=== PATIENT | male | born 1945 | race Caucasian/White ===

== ENCOUNTER → 2016-12-21 | Outpatient (CLI) | payer OTHER ==
[2016-12-21 10:32] LABS: BASO # 0.1 10*3/uL (0.0-0.1); BASO % 0.7 % (0.0-1.0); EOS # 0.2 10*3/uL (0.0-0.4); EOS % 2.1 % (1.0-4.0); HEMATOCRIT 42.5 % (42.0-52.0); HEMOGLOBIN 14.5 g/dl (14.0-18.0); LYMPH # 2.1 10*3/uL (1.3-4.4); LYMPH % 27.5 % (27.0-41.0); MEAN CELL VOLUME 89.9 fl (80.0-94.0); MEAN CORPUSCULAR HGB 30.7 pg (27.0-31.0); MEAN CORPUSCULAR HGB CONC 34.1 g/dl (33.0-37.0); MEAN PLATELET VOLUME 12.2 fl (9.6-12.3); MONO # 0.6 10*3/uL (0.1-1.0); MONO % 7.2 % (3.0-9.0); NEUT # 4.7 10*3/uL (2.3-7.9); NEUT % 62.1 % (47.0-73.0); PLATELET COUNT AUTOMATED 147 10*3/uL (130-400); RED BLOOD COUNT 4.73 10*6/uL (4.50-5.90); RED CELL DISTRI WIDTH 13.7 % (0-14.5); WHITE BLOOD COUNT 7.6 10*3/uL (4.8-10.8)
[2016-12-21 11:02] LABS: ALBUMIN 3.7 gm/dl (3.1-4.5); BUN 15 mg/dl (7-24); CARBON DIOXIDE 32 mmol/L (21-32); CHLORIDE 98 mmol/L (98-107); CHOLESTEROL 139 mg/dL (<200); EST GLOM FILT AFRICAN AMERICAN > 60 ml/min; GLUCOSE 90 mg/dL (65-99); POTASSIUM 3.6 mmol/L (3.5-5.1); SGOT/AST 18 IU/L (3-35); SGPT/ALT 23 U/L (12-78); SODIUM 141 mmol/L (136-145); TRIGLYCERIDES 240 mg/dl (<150); VLDL CHOLESTEROL 48 mg/dL (6-40)
[2016-12-21 11:09] LABS: ALKALINE PHOSPHATASE 68 U/L (45-117); BILIRUBIN, TOTAL 0.6 mg/dl (0.2-1.0); FREE T4 1.29 ng/dl (0.76-1.46); HDL CHOLESTEROL 40 mg/dl (40-60); LDL CHOLESTEROL 51 mg/dL (9-159)
[2016-12-22 09:08] LABS: PROSTATE SPECIFIC AG FREE 0.06 ng/mL
== END | disposition home or self-care (01) ==
LOC: LAB 09:46
PROVIDERS: Internal Medicine
DX: N40.0 Benign prostatic hyperplasia without lower urinary tract symptoms (principal); E55.9 Vitamin D deficiency, unspecified; E03.9 Hypothyroidism, unspecified; E78.00 Pure hypercholesterolemia, unspecified

== ENCOUNTER 2017-06-24 12:00 | Inpatient (IN) | payer OTHER ==
[~2017-06-24] VITALS: Ht 180.3 cm; Wt 118.2 kg
[2017-06-24 12:14] VITALS: BP 107/77
[2017-06-24 12:19] LABS: BASO # 0.1 10*3/uL (0.0-0.1); BASO % 0.6 % (0.0-1.0); EOS # 0.1 10*3/uL (0.0-0.4); EOS % 1.2 % (1.0-4.0); HEMATOCRIT 40.6 % (42.0-52.0); HEMOGLOBIN 14.4 g/dl (14.0-18.0); LYMPH # 1.8 10*3/uL (1.3-4.4); LYMPH % 16.5 % (27.0-41.0); MEAN CELL VOLUME 90.4 fl (80.0-94.0); MEAN CORPUSCULAR HGB 32.1 pg (27.0-31.0); MEAN CORPUSCULAR HGB CONC 35.5 g/dl (33.0-37.0); MEAN PLATELET VOLUME 10.8 fl (9.6-12.3); MONO # 1.1 10*3/uL (0.1-1.0); NEUT # 7.7 10*3/uL (2.3-7.9); NEUT % 71.2 % (47.0-73.0); PLATELET COUNT AUTOMATED 185 10*3/uL (130-400); RED BLOOD COUNT 4.49 10*6/uL (4.50-5.90); RED CELL DISTRI WIDTH 13.4 % (0-14.5); WHITE BLOOD COUNT 10.8 10*3/uL (4.8-10.8)
[2017-06-24 12:33] LABS: ACT PARTIAL THROMBO TIME 32.4 SECONDS (20.8-31.5); INTERNATIONAL NORM RATIO 2.6 (2.0-3.5)
[2017-06-24 12:35] LABS: ALBUMIN 3.5 gm/dl (3.1-4.5); ALKALINE PHOSPHATASE 82 U/L (45-117); BUN 21 mg/dl (7-24); CHLORIDE 88 mmol/L (98-107); CKMB 2.5 ng/ml (0.5-3.6); CPK 127 U/L (39-308); CREATININE 1.22 mg/dL (0.70-1.30); LIPASE 108 U/L (73-393); MAGNESIUM 1.9 mg/dL (1.5-2.1); POTASSIUM 2.8 mmol/L (3.5-5.1); SGOT/AST 19 IU/L (3-35); SGPT/ALT 20 U/L (12-78); SODIUM 131 mmol/L (136-145); TROPONIN I < 0.015 ng/ml (<0.045)
--- NOTE | 2017-06-24 14:57 | NUR ---
NURSE REPORT PROVIDED TO [facility]. ADMISSION PENDING ON ARRIVAL OF NEW STAFF AT APROXIMATELY 1520, THEY WILL PAULETTE ME WHEN PT IS TO BE BROGUTH UPSTAIRS. NO CHANGE IN PT CONDITION.
[2017-06-24 15:00] VITALS: BP 116/66
[2017-06-24] MEDS ORDERED: SIMVASTATIN40 MG PO (15:12)
--- NOTE | 2017-06-24 15:41 | NUR ---
PERMISSION TO TRANSPORT NOW PROVIDED. ADMISSION IN PROGRESS.
[2017-06-24 15:50] VITALS: BP 142/46
--- NOTE | 2017-06-24 15:50 | NUR ---
A 72, admitted to , under the services of JAX Tran DO with a diagnosis of NEAR SYNCOPE DEHYDRATION HYPOKALEMIA. Chief complaint is DIZZINESS. Patient arrived via bed from ER. Monitor applied. Initial assessment completed. Vital signs taken and recorded. JAX TRAN DO notified of admission to the unit. Orders received. See assessment for past medical history, medications and allergies. Patient and/or family oriented to unit. [facility] visitation policy reviewed. Clothing/patient valuable form completed. ANA CAMACHO
[2017-06-24 16:00] VITALS: BP 142/46; BP 147/73
--- NOTE | 2017-06-24 17:02 | NUR ---
PATIENT MEDICATD WITH PRN DULCOLAX FOR C/O CONSTIPATION FOR 3 DAYS.
--- NOTE | 2017-06-24 17:51 | NUR ---
SPOKE TO ELVIRA VILLAGRAN IN REGARDS TO PATIENTS MED LIST AND THEY SAID THEY WILL FAX IT.
[2017-06-24] MEDS ORDERED: KLOR-CON M2020 ME1 PO (19:39)
[2017-06-24] MEDS ORDERED: LEVOTHYROXINE175 MCG PO (19:40)
[2017-06-24] MEDS ORDERED: CLARITIN10 MG PO (19:40)
[2017-06-24] MEDS ORDERED: LASIX40 MG PO (19:41)
[2017-06-24] MEDS ORDERED: ALLOPURINOL100 MG PO (19:41)
[2017-06-24] MEDS ORDERED: TAMSULOSIN HCL0.4 MG PO (19:42)
[2017-06-24] MEDS ORDERED: METOPROLOL SUCC25 M2 PO (19:43)
[2017-06-24] MEDS ORDERED: WARFARIN SOD5 MG PO (19:43)
[2017-06-24] MEDS ORDERED: ZESTORETIC 20-1 EACH PO (19:44)
[2017-06-24] MEDS ORDERED: DOXYCYCLINE HY100 M3 PO (19:45)
[2017-06-24] MEDS ORDERED: VENTOLIN 02.5 MG/3 M INH (19:46)
[2017-06-24] MEDS ORDERED: TESSALON PERLE100 MG PO (19:46)
--- NOTE | 2017-06-24 19:47 | NUR ---
MED REC UPDATED VIA LIST FROM ELVIRA VILLAGRAN.
[2017-06-24 20:00] VITALS: BP 127/69
--- NOTE | 2017-06-24 20:00 | NUR ---
RESTING IN BED, NO ACUTE DISTRESS NOTED. RESPIRATIONS EASY. LUNGS DIMINISHED, CLEAR. PULSE OX 97% RA. INFREQUENT COUGH NOTED, NON-PRODUCTIVE. TRACE BLE EDEMA NOTED. OFFERED AND EDUCATED REGARDING TEDS, DECLINED. CALL LIGHT WITHIN REACH. NO VOICED COMPLAINTS.
--- NOTE | 2017-06-24 23:00 | NUR ---
ITEMS OBTAINED AND PLACED IN LOCK BOX
[2017-06-25] VITALS: BP 138/79
--- NOTE | 2017-06-25 00:30 | NUR ---
SLEEPING. NO DISTRESS NOTED. RESPIRATIONS EASY. VSS. CALL LIGHT WITHIN REACH
[2017-06-25] MEDS ORDERED: Lopressor25 MG PO (01:36)
--- NOTE | 2017-06-25 06:00 | NUR ---
SLEPT THROUGHOUT NIGHT WITH NO DISTRESS NOTED. RESPIRATIONS EASY. CALL LIGHT WITHIN REACH. NO VOICED COMPLAINTS THIS SHIFT
[2017-06-25 06:26] LABS: BASO # 0.1 10*3/uL (0.0-0.1); BASO % 0.5 % (0.0-1.0); EOS # 0.3 10*3/uL (0.0-0.4); EOS % 2.9 % (1.0-4.0); HEMOGLOBIN 14.3 g/dl (14.0-18.0); LYMPH # 2.4 10*3/uL (1.3-4.4); LYMPH % 24.9 % (27.0-41.0); MEAN CELL VOLUME 89.9 fl (80.0-94.0); MEAN CORPUSCULAR HGB 30.6 pg (27.0-31.0); MEAN PLATELET VOLUME 11.5 fl (9.6-12.3); MONO # 0.8 10*3/uL (0.1-1.0); MONO % 8.8 % (3.0-9.0); NEUT # 5.9 10*3/uL (2.3-7.9); NEUT % 62.6 % (47.0-73.0); PLATELET COUNT AUTOMATED 172 10*3/uL (130-400); RED BLOOD COUNT 4.67 10*6/uL (4.50-5.90); RED CELL DISTRI WIDTH 13.6 % (0-14.5); WHITE BLOOD COUNT 9.5 10*3/uL (4.8-10.8)
[2017-06-25 06:46] LABS: INTERNATIONAL NORM RATIO 2.5 (2.0-3.5)
[2017-06-25 06:47] LABS: BUN 18 mg/dl (7-24); CHLORIDE 91 mmol/L (98-107); CHOLESTEROL 126 mg/dL (<200); CREATININE 1.12 mg/dL (0.70-1.30); HDL CHOLESTEROL 38 mg/dl (40-60); LDL CHOLESTEROL 59 mg/dL (9-159); PHOSPHOROUS 2.3 mg/dL (2.5-4.9); SODIUM 131 mmol/L (136-145); TRIGLYCERIDES 143 mg/dl (<150); VLDL CHOLESTEROL 29 mg/dL (6-40)
[2017-06-25 08:00] VITALS: BP 104/66
[2017-06-25 08:23] LABS: VITAMIN D, 25-HYDROXY 32.4 ng/mL (30-100)
--- NOTE | 2017-06-25 09:00 | NUR ---
Diversity Manager in to talk to patient. Patient states lives at home with . There are few steps in the home. Physician: wero arreola Pharmacy: [facility] health services: none Patient's level of ADLs: INDEPENDENT Patient has working utilities: all working DME: none Follow-up physician's appointment after d/c: will be made by hospitalist nurse director upon discharge Does patient want to access PORTAL?: no Discharge plan discussed with patient, patient states he lives at home with his , he is independent in adls and ambulation, drives, patient states he will be going back home and denies any home needs. DIEGO RHODES
[2017-06-25 12:00] VITALS: BP 127/61
[2017-06-25 12:14] LABS: BUN 18 mg/dl (7-24); CHLORIDE 88 mmol/L (98-107); CREATININE 1.16 mg/dL (0.70-1.30); POTASSIUM 3.5 mmol/L (3.5-5.1); SODIUM 129 mmol/L (136-145)
[2017-06-25] MEDS ORDERED: KLOR-CON M2020 ME1 PO (13:26)
--- NOTE | 2017-06-25 16:37 | NUR ---
Discharge instructions reviewed with patient/family. Patient receptive and verbalizes understanding. Follow-up care arranged. Written instructions given to patient/family. GLENN RUEDA
== END 2017-06-25 16:37 | disposition home or self-care (01) | DRG 641 ==
LOC: ED 12:00 → EDHOLD 14:05 → 5E 14:05
PROVIDERS: Emergency Medicine; Internal Medicine; ADMIT Internal Medicine
DX: E87.6 Hypokalemia (principal); E86.0 Dehydration; D68.9 Coagulation defect, unspecified; I48.0 Paroxysmal atrial fibrillation; J44.9 Chronic obstructive pulmonary disease, unspecified; E87.1 Hypo-osmolality and hyponatremia; I10 Essential (primary) hypertension; E03.9 Hypothyroidism, unspecified; J40 Bronchitis, not specified as acute or chronic; M1A.9XX0 Chronic gout, unspecified, without tophus (tophi); R60.0 Localized edema; E78.00 Pure hypercholesterolemia, unspecified; N40.1 Benign prostatic hyperplasia with lower urinary tract symptoms; D72.810 Lymphocytopenia; E87.8 Other disorders of electrolyte and fluid balance, not elsewhere classified; Z95.810 Presence of automatic (implantable) cardiac defibrillator; Z87.891 Personal history of nicotine dependence; Z83.3 Family history of diabetes mellitus; Z79.01 Long term (current) use of anticoagulants; W19.XXXA Unspecified fall, initial encounter; Y93.89 Activity, other specified; Y92.89 Other specified places as the place of occurrence of the external cause; Y99.8 Other external cause status; T45.515A Adverse effect of anticoagulants, initial encounter

== ENCOUNTER → 2017-07-06 | Outpatient (CLI) | payer OTHER ==
[~2017-07-06] MED LIST: ALLOPURINOL100 MG PO; CLARITIN10 MG PO; DOXYCYCLINE HY100 M3 PO; KLOR-CON M2020 ME1 PO; LASIX40 MG PO; LEVOTHYROXINE175 MCG PO; Lopressor25 MG PO; METOPROLOL SUCC25 M2 PO; SIMVASTATIN40 MG PO; TAMSULOSIN HCL0.4 MG PO; TESSALON PERLE100 MG PO; VENTOLIN 02.5 MG/3 M INH; WARFARIN SOD5 MG PO; ZESTORETIC 20-1 EACH PO
[2017-07-06 14:18] LABS: BUN 19 mg/dl (7-24); CHLORIDE 100 mmol/L (98-107); CREATININE 1.18 mg/dL (0.70-1.30); SODIUM 138 mmol/L (136-145)
== END | disposition home or self-care (01) ==
LOC: LAB 13:38
PROVIDERS: Internal Medicine
DX: I10 Essential (primary) hypertension (principal)

== ENCOUNTER → 2017-12-14 | Outpatient (CLI) | payer OTHER ==
[2017-12-14 10:03] LABS: BASO # 0.1 10*3/uL (0.0-0.1); BASO % 0.7 % (0.0-1.0); EOS # 0.2 10*3/uL (0.0-0.4); EOS % 2.2 % (1.0-4.0); HEMATOCRIT 43.4 % (42.0-52.0); HEMOGLOBIN 14.3 g/dl (14.0-18.0); LYMPH # 1.6 10*3/uL (1.3-4.4); LYMPH % 22.1 % (27.0-41.0); MEAN CELL VOLUME 91.8 fl (80.0-94.0); MEAN CORPUSCULAR HGB 30.2 pg (27.0-31.0); MEAN CORPUSCULAR HGB CONC 32.9 g/dl (33.0-37.0); MEAN PLATELET VOLUME 11.6 fl (9.6-12.3); MONO # 0.5 10*3/uL (0.1-1.0); MONO % 7.1 % (3.0-9.0); NEUT # 4.9 10*3/uL (2.3-7.9); NEUT % 67.6 % (47.0-73.0); PLATELET COUNT AUTOMATED 150 10*3/uL (130-400); RED BLOOD COUNT 4.73 10*6/uL (4.50-5.90); RED CELL DISTRI WIDTH 13.7 % (0-14.5); WHITE BLOOD COUNT 7.2 10*3/uL (4.8-10.8)
[2017-12-14 11:04] LABS: ALBUMIN 3.4 gm/dl (3.1-4.5); ALKALINE PHOSPHATASE 86 U/L (45-117); BUN 15 mg/dl (7-24); CHLORIDE 100 mmol/L (98-107); CHOLESTEROL 117 mg/dL (<200); CREATININE 1.08 mg/dL (0.70-1.30); HDL CHOLESTEROL 34 mg/dl (40-60); LDL CHOLESTEROL 54 mg/dL (9-159); POTASSIUM 3.6 mmol/L (3.5-5.1); SGOT/AST 18 IU/L (3-35); SGPT/ALT 19 U/L (12-78); SODIUM 139 mmol/L (136-145); TOTAL PROTEIN 6.8 gm/dL (6.4-8.2); TRIGLYCERIDES 146 mg/dl (<150); VLDL CHOLESTEROL 29 mg/dL (6-40)
== END | disposition home or self-care (01) ==
LOC: LAB 09:33
PROVIDERS: Internal Medicine
DX: Z12.5 Encounter for screening for malignant neoplasm of prostate (principal); E78.00 Pure hypercholesterolemia, unspecified; N40.0 Benign prostatic hyperplasia without lower urinary tract symptoms; E55.9 Vitamin D deficiency, unspecified; I10 Essential (primary) hypertension